=== PATIENT | male | born 1960 | race Caucasian/White ===

== ENCOUNTER 2017-02-05 08:05 | Inpatient (IN) | payer OTHER ==
--- NOTE | 2017-01-24 22:17 | HP ---
HISTORY AND PHYSICAL: DATE OF OFFICE VISIT: 01/24/17 DATE OF SURGERY/ADMISSION: 02/05/17 ATTENDING SURGEON: Mark Agrawal MD PROCEDURE: Right total knee arthroplasty. CHIEF COMPLAINT: Right knee pain. HISTORY OF PRESENT ILLNESS: The patient is a very pleasant 57-year-old gentleman with a longstanding history of right-sided knee pain for which he has failed conservative treatments such as physical therapy and NSAIDs. He has elected to undergo a right total knee arthroplasty by Dr. Agrawal on 02/05/17. PAST MEDICAL HISTORY: 1. Gout. 2. History of DVT x2, in 2013 and 2015. 3. Diabetes type 2. PAST SURGICAL HISTORY: 1. Herniated disk with laminectomy in 2003. 2. Inguinal hernia repair in 2014. 3. Knee scope, unsure of side, approximately 30 years ago. MEDICATIONS: 1. Xarelto 20 mg 1 tablet by mouth daily. 2. Metformin 500 mg by mouth twice a day. 3. Lovaza 1 g 1 tablet by mouth twice a day. 4. Vitamin D3 1000 International Units 1 tablet by mouth daily. 5. Allopurinol 100 mg 1 tablet by mouth daily. 6. Fenofibrate 145 mg 1 tablet by mouth daily. ALLERGIES: No known drug allergies. FAMILY MEDICAL HISTORY: Positive for heart disease. Mother was positive for diabetes, DVT, and PE. Brother x2 positive for DVT. SOCIAL HISTORY: The patient is denies tobacco use, rare alcohol use, approximately 1 to 2 times a month. Currently living with spouse in a 2-chetna home. REVIEW OF SYSTEMS: General: Negative for fevers, chills, or night sweats. No difficulty with anesthesia. HEENT: Negative for headache, lightheadedness, or syncopal episodes. Integument: Negative for abrasions, lesions, or open wounds. Cardiothoracic: Negative for chest pain, palpitations, or edema. Negative for hypertension. Pulmonary: Negative for shortness of breath, chronic cough, or COPD. GI: Negative for nausea, vomiting, constipation, diarrhea, or GERD. : Negative for nocturia, urinary frequency, or urgency. No history of UTIs or kidney problems. Musculoskeletal: Positive for right knee pain. Negative for back pain. Negative for other joint pains. Neuro: Negative for paresthesias or numbness. No history of seizure, stroke, or epilepsy. Endocrine: Positive for diabetes. Negative for thyroid disease. Hematologic: Negative for easy bruising, anemia, or excessive bleeding. Positive for DVT x2. Infectious Disease: Negative for MRSA, hepatitis C, or HIV. PHYSICAL EXAMINATION GENERAL: Well appearing, in no acute distress. Alert and oriented x3. Appropriate mood and affect. VITAL SIGNS: Height 6 feet, weight 138 pounds, temperature 97.6, respirations 16, blood pressure 160/94, and pulse 73. HEENT: Normocephalic, atraumatic. NECK: Supple. PULMONARY: Lungs clear to auscultation bilaterally. No crackles, rhonchi, or wheezes. CARDIO: Regular rate and rhythm. No murmurs, gallops, or rubs. No edema, bilateral lower extremities. ABDOMEN: Soft, nontender, and nondistended. NEUROLOGIC: Alert and oriented x3. Cranial nerves grossly intact. Sensation intact to light touch in bilateral lower extremities. MUSCULOSKELETAL: Range of motion of right knee is approximately 5 degrees to 115 degrees. Negative Homans sign bilaterally. Posterior tibialis pulses 2+ bilaterally. Sensation grossly intact to light touch bilateral lower extremities. Minimal joint effusion noted over right knee. Positive crepitus with flexion. DIAGNOSTIC STUDIES/LAB DATA: MRI dated 10/05/16. IMPRESSION: The patient is a 57-year-old gentleman, who has elected to undergo a right total knee replacement by Dr. Mark Agrawal on 02/05/17. He underwent a preoperative evaluation with his primary care doctor on 01/22/17, where he reports being clear to undergo his preoperative laboratory work today at the hospital. Postoperatively, the patient was referred to go home and is ready to live in a 1- chetna basic floor sometime. Medications of Percocet and Colace were prescribed to the patient. I will be in contact with Dr. Santo, his tonnage compilation clerk, with regards to his preoperative Xarelto and postoperative Xarelto dosing. Prescriptions for Percocet and Colace were called to the patient 's pharmacy. CINDY GRIFFIN [id number]/[facility] #: [id number] MTDD
--- NOTE | 2017-01-31 23:18 | HP ---
HISTORY AND PHYSICAL: DATE OF ADMISSION/SURGERY: 02/05/17 DATE OF OFFICE VISIT: 01/24/17 ATTENDING SURGEON: Dr. Agrawal. (DICTATED BY CINDY GRIFFIN) PROCEDURE: Right total knee replacement. CHIEF COMPLAINT: Right knee pain. HISTORY OF PRESENT ILLNESS: The patient is a 57-year-old male who has suffered from continuing pain from his right knee osteoarthritis. He failed conservative treatments such as steroid injections, physical therapy, NSAID treatment and has elected to undergo a right total knee replacement by Dr. Agrawal on 02/05/17. PAST MEDICAL HISTORY: 1. Gout. 2. History of DVTs x2 in 2013 and 2015, now on Xarelto manager intermediate. 3. Diabetes type 2, well controlled. PAST SURGICAL HISTORY: 1. Herniated disk with laminectomy, 2003. 2. Umbilical hernia repair, 2014. 3. Knee scope approximately 30 years ago. MEDICATIONS: 1. Xarelto 20 mg 1 tablet by mouth daily. 2. Metformin HCL 500 mg 1 tablet by mouth b.i.d. 3. Lovaza 1 g 1 capsule by mouth twice a day. 4. Vitamin D3 1000 units p.o. daily. 5. Allopurinol 100 mg p.o. daily. 6. Fenofibrate 145 mg p.o. daily. ALLERGIES: No known drug allergies. FAMILY MEDICAL HISTORY: Mother with diabetes, DVT and PE. Brother with DVT. Family history of heart disease. SOCIAL HISTORY: No tobacco use. Rare alcohol use. Currently living with spouse in 2-story home. REVIEW OF SYSTEMS: General: Negative for fevers, chills and no night sweats. No difficulty with anesthesia. HEENT: Negative for headache, lightheadedness or syncopal episodes. Integument: Negative for abrasions, lesions, open wounds or sores. No difficulty with healing. Cardiothoracic: Negative for chest pain, palpitations or edema. Negative for hypertension. Pulmonary: Negative for shortness of breath with exertion, chronic cough or COPD. No history of PEs. GI: Negative for nausea, vomiting, constipation, diarrhea or GERD. : Negative for nocturia, urinary frequency, urgency, history or UTIs or kidney problems. Musculoskeletal: Positive for right knee pain. Positive for generalized osteoarthritis. Neuro: Negative for paresthesias, numbness or history of seizures, stroke or epilepsy. Endocrine: Positive for diabetes. Negative for thyroid disease. Hematologic: Negative for easy bruising, anemia or excessive bleeding. Positive history of DVT x2 without eliciting event. Infectious Disease: No history of MRSA, hepatitis C, or HIV. PHYSICAL EXAMINATION GENERAL: Well appearing, in no acute distress. Alert and oriented. VITAL SIGNS: Height 6 feet, weight 238 pounds, temperature 97.6, respirations 16, blood pressure 150/94, pulse 73. HEENT: Normocephalic, atraumatic. Pupils reactive. PULMONARY: Lungs clear to auscultation bilaterally. No crackles, rhonchi or wheezes. CARDIAC: Regular rate and rhythm. No murmurs, gallops or rubs. Normal S1, S2. ABDOMEN: Soft, nontender, nondistended. Normoactive bowel sounds. No CVA tenderness bilaterally. MUSCULOSKELETAL: Posterior tibial pulses 2+ bilaterally. No edema noted bilaterally. Range of motion of right knee full extension with flexion to about 120 degrees. Tenderness of the medial joint line. Minimal joint effusion. NEUROLOGIC: Alert and oriented x3. Cranial nerves grossly intact. Sensation to light touch intact, bilateral lower extremities. ASSESSMENT: The patient was recently seen by his primary care doctor on and was cleared for the procedure. I spoke with Dr. Santo who prescribes the patient's Xarelto and he will hold the Xarelto 3 days prior to surgery without any bridging needing to be decided on the night after surgery if there are no complications. The patient had a recent imaging which was an MRI of his knee on 10/05/16 and he had no other questions or concerns. Prescription for Percocet and Colace was sent to the patient's pharmacy for postoperative pain management. He will call us if any questions do arise. CINYD GRIFFIN [id number]/[facility] #: [id number] ERLIN
[~2017-02-05 08:05] MED LIST: Buffered Lidocaine 0.9% SYRIN* 5 ML/SYR SYRINGE INTRADERM ONE; Sodium Citrate/Citric Acid* 15 ML UDC PO ONE; celeCOXIB CAP* 200 MG PO ONE
[2017-02-05] MEDS ORDERED: Sodium Citrate/Citric Acid* 15 ML UDC ONE (08:09)
[2017-02-05] MEDS ORDERED: ceFAZolin 2 GM PREMIX(*) 2 GM/50 ML BAG IVPB ONE (08:09)
[2017-02-05] MEDS ORDERED: celeCOXIB CAP* 100 MG ONE (08:09)
[2017-02-05] MEDS ORDERED: Buffered Lidocaine 0.9% SYRIN* 5 ML/SYR SYRINGE ONE (08:09)
[2017-02-05] MEDS ORDERED: Gabapentin CAP(*) 400 MG PO ONE (08:15)
[2017-02-05] MEDS ORDERED: Midazolam* 1 MG/ML 5 ML VIAL (5 MG) ONE ×2 (10:19→11:13)
[2017-02-05] MEDS ORDERED: fentaNYL* 50 MCG/ML 2 ML VIAL (100 MCG VIAL) ONE ×2 (10:19→13:14)
[2017-02-05] MEDS ORDERED: Lidocaine 2% EPI 1:200000 MPF* 20 ML VIAL ONE (10:22)
[2017-02-05] MEDS ORDERED: EPHEDrine (Pressors)* 50 MG/ML VIAL IV PUSH PRN (11:19)
[2017-02-05] MEDS ORDERED: Lactated Ringers 500 ml BAG* 500 ML IV PRN (11:19)
[2017-02-05] MEDS ORDERED: Ondansetron INJ* 2 MG/ML VIAL IV PRN ×2 (11:21→12:39)
[2017-02-05] MEDS ORDERED: Acetaminophen IV 1GM/100ML * 10 MG/ML VIAL IVPB ONE (11:21)
[2017-02-05] MEDS ORDERED: DiMENhydriNATE IV* 50 MG/ML VIAL IV PUSH PRN (11:21)
[2017-02-05] MEDS ORDERED: fentaNYL* 50 MCG/ML 2 ML VIAL (100 MCG VIAL) IV PRN (11:21)
[2017-02-05] MEDS ORDERED: Ropivacaine 0.2% EPIDURAL* 200 MG/100 ML BAG EPIDURAL ONE (12:03)
[2017-02-05] MEDS ORDERED: Acetaminophen IV 1GM/100ML * 100 ML ONE (12:15)
[2017-02-05] MEDS ORDERED: diPHENhydraMINE IV* 50 MG/ML 1 ml VIAL (BENADRYL) IV PRN (12:39)
[2017-02-05] MEDS ORDERED: Magnesium Hydroxide LIQ* 30 ML UDC PO PRN (12:39)
[2017-02-05] MEDS ORDERED: oxyCODONE TAB* 5 MG TAB PO PRN (12:39)
[2017-02-05] MEDS ORDERED: Bisacodyl SUPP* 10 MG SUPP PR PRN (12:39)
[2017-02-05] MEDS ORDERED: Acetaminophen TAB* 325 MG PO PRN (12:39)
[2017-02-05] MEDS ORDERED: oxyCODONE/Acetamin 5/325 MG* TAB PO PRN (12:39)
[2017-02-05] MEDS: Ropivacaine 0.2% EPIDURAL* 200 MG/100 ML BAG EPIDURAL SCH ×2 (12:59→22:09)
[2017-02-05] MEDS ORDERED: Dextrose 50% Syringe 50 ML* 25 GM/50 ML SYRINGE IV PUSH PRN (13:02)
--- NOTE | 2017-02-05 13:29 | RAD ---
HISTORY: Status post right knee arthroplasty COMPARISONS: None VIEWS: 2, Frontal and lateral views of the right knee FINDINGS: BONE DENSITY: Normal. BONES: The patient is status post right knee arthroplasty. There is no hardware failure or osteolysis. JOINTS: The patient is status post right knee arthroplasty ALIGNMENT: There is no dislocation. SOFT TISSUES: There is postsurgical change to the soft tissues OTHER FINDINGS: None. IMPRESSION: STATUS POST RIGHT KNEE ARTHROPLASTY
--- NOTE | 2017-02-05 15:35 | CONS ---
CONSULTATION REPORT: DATE OF CONSULT: 02/05/17 PRIMARY CARE PROVIDER: Pamela Carrera MD REQUESTING PHYSICIAN FOR CONSULTATION: Dr. Agrawal. ATTENDING PHYSICIAN WHILE IN THE HOSPITAL: Cady Martinez MD ( reportdictated by Ralf Latham NP). REASON FOR MEDICAL CONSULTATION: Evaluation and medical management of comorbid medical conditions. HISTORY OF PRESENT ILLNESS: I refer you to Dr. Agrawal's H and P for further details. In short, Mr. Warner is a 57-year-old male who has a history of hyperlipidemia, DVT, history of diabetes, and history of gout. He is on lifelong anticoagulation. He has been followed in the outpatient setting with Dr. Agrawal for right knee pain. He has been failing conservative therapy and it was felt that he would benefit from a total knee replacement, which he underwent today. Because of his comorbid medical problems, we were asked to evaluate in consult. He was evaluated in the PACU. The patient states he is feeling well. He denies having any chest pain. Denies having any shortness of breath. Denies any abdominal pain. He denies having any nausea or any vomiting. He states that he is not having any chest pain. He is having some tightness in his knee, but he denies having any numbness or tingling to the lower extremity. Because of his medical complexity, we were asked to evaluate in consult. PAST MEDICAL HISTORY: Significant for: 1. Gout. 2. DVT. 3. Diabetes. 4. Hyperlipidemia. PAST SURGICAL HISTORY: 1. He has had a laminectomy. 2. Hernia repair. 3. Knee arthroscopy, now he is status post right total knee replacement. MEDICATIONS: Home meds according to the preop list include: 1. Metformin 500 mg p.o. b.i.d. 2. Xarelto 20 mg daily. 3. Lovaza 2 capsules p.o. daily. 4. TriCor 145 mg daily. 5. Vitamin D 1000 units p.o. daily. 6. Allopurinol 100 mg p.o. q.a.m. ALLERGIES: To medications include no known drug allergies. FAMILY HISTORY: Mother had diabetes, history of DVT and PE. Father had a history of CT. SOCIAL HISTORY: He does not smoke. He rarely drinks alcohol. 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 Surrogate decision maker is his . REVIEW OF SYSTEMS: There is no documented fever. He denied having any significant weight change. There was no double vision. He denies having any ear discharge. There was no rhinorrhea. There is no sore throat, no thyroid enlargement. Denies having any chest pain. There is no orthopnea. There is no nocturnal dyspnea. There is no abdominal pain. There is no nausea. No vomiting. There is no dysuria. No frequency. There is no seizure. No loss of consciousness. No pruritus. No skin ulcerations. Review of 14 systems completed, all others negative. PHYSICAL EXAMINATION: Vital Signs: Blood pressure 135/74, pulse of 66, respirations of 14, O2 sat 97%, temperature 98.8. General: At this time, Mr. Warner is a 57-year-old male patient. He is sitting in the PACU bed. He does not appear to be in any acute distress. HEENT: Head is atraumatic, normocephalic. Eyes: EOMs are intact. Sclerae were anicteric and not pale. Neck: Supple. Throat: Oral mucosa appears to be moist. No oropharyngeal erythema. Heart: Sounds S1, S2. Regular rate and rhythm. No murmurs, rubs, or gallops. Lungs were clear to auscultation bilaterally. No wheezes, rales, or rhonchi. Abdomen is soft, flat, nontender. Bowel sounds hypoactive. Extremities: Pulses 2+ throughout. He can move his upper extremities with 5/5 strength. He does have limited range of motion of the right lower extremity as this is the operative leg, but distal CSM checks were intact. Neurologically, he is awake, alert, oriented x3. Tongue is midline. Heat Set Operator were equal. No gross focal deficits. Skin is intact except he has an incision to the right knee, which was covered with an Jose dressing, which is clean, dry, and intact. LABORATORY DATA/DIAGNOSTIC STUDIES: Preoperative WBC is 7.4, RBC 4.90, hemoglobin 14.7, hematocrit of 41, platelet count 200. His INR was 0.90. Sodium 137, potassium 3.9, chloride of 99, bicarb 27, BUN 15, creatinine 1.33. He had a urine preop, which was negative. He had a chest x-ray preop, which showed no active cardiopulmonary disease. There was an EKG obtained as well, which showed a normal sinus rhythm, rate of 79, no ST elevations or T wave inversions were noted. Old medical records were reviewed. ASSESSMENT AND PLAN: Mr. Warner is a 57-year-old male patient coming in to the orthopedic services today for an elective right total knee replacement. Hospitalist service was asked to evaluate in consult. My recommendations at this point are: 1. Status post right total knee replacement. I will defer the management to Dr. Agrawal and his team. 2. History of deep venous thrombosis and pulmonary embolism. I do see that the patient has received an epidural by anesthesia. I would touch base with the anesthesiology to make sure whether it was safe to restart from their standpoint and also safe to restart the Xarelto from the orthopedic standpoint, but I would start this medication as soon as again it is deemed appropriate and safe per Anesthesia and Orthopedics. Given the patient's history of deep venous thrombosis and pulmonary embolism, he is high risk for recurrence. 3. Hyperlipidemia. Continue TriCor. 4. Diabetes, he will be on lispro sliding scale. 5. DVT prophylaxis. Defer to the primary team. 6. Code status, full code. 7. Fluid, electrolytes, and nutrition. I would recommend a consistent carb diet. TIME SPENT: Time spent on the consult was 50 minutes, greater than half that time was spent [id number] with the patient obtaining my history and physical, the other half time was spent going over plan of care with the patient, implementing the plan of care. I discussed the plan of care with my attending, Dr. Martinez, she is in agreement. RALF LATHAM NP CC: Pamela Carrera MD; Dr. Agrawal * [id number]/[facility] #: [id number] [facility]
[2017-02-05] MEDS ORDERED: ceFAZolin VIAL(*) 1 GM in NS 0.9% 50 ML* 50 ML IVPB SCH (17:00)
[2017-02-05] MEDS: Insulin LISPRO* 1 UNITS UNIT SUBCUT SCH (17:11)
[2017-02-05] MEDS: Docusate CAP* 100 MG PO SCH (20:51)
[2017-02-05] MEDS ORDERED: metFORMIN* 1,000 MG TAB PO SCH (21:00)
[2017-02-06] MEDS: ceFAZolin VIAL(*) 1 GM in NS 0.9% 50 ML* 50 ML IVPB SCH ×2 (00:59→08:30)
--- NOTE | 2017-02-06 03:49 | OP ---
DATE OF OPERATION: 02/05/17 - ROOM #346 DATE OF : 64 ATTENDING SURGEON: Mark Agrawal MD PACS SPECIALIST: CINDY Hurtado ANESTHESIOLOGIST: Mark Mcmillan MD ANESTHESIA: Epidural and sedation. PRE-OP DIAGNOSIS: Osteoarthritis, right knee. POST-OP DIAGNOSIS: Osteoarthritis, right knee. OPERATIVE PROCEDURE: Right total knee arthroplasty. ESTIMATED BLOOD LOSS: Less than 50 cc. COMPLICATIONS: None. HARDWARE: Arya Persona #10 femur, G tibia, 10 mm polyethylene, 38 mm all polyethylene patellar button. INDICATIONS: Mr. Warner is a 57-year-old male who has been having continued troubles with right knee pain. He had been treated conservatively with anti- inflammatories, physical therapy, and injections, but still had very specific complaints about limitations with his ability to be on his feet and enjoy the things that he would like to do. His x-rays were not that bad where it was not completely [id number], but by MRI, he has significant loss of the weightbearing portion of the medial femur as well as significant loss of cartilage in the patellofemoral joint. Because of those changes and failure of conservative treatments, he has been indicated for a total knee arthroplasty. I discussed with him that a total knee arthroplasty should work well to decrease his pain and improve his function. Risks of surgery such as infection , scar formation, stiffness, DVT, pulmonary embolism, hardware failure, and continued pain were some of the risks discussed. He had been declared medically optimized and wished to proceed. DESCRIPTION OF PROCEDURE: The patient was brought to the OR and epidural anesthesia was established. Grajeda catheter was placed. Tourniquet was placed over the proximal right thigh and was used during the case. Total tourniquet time would be approximately 56 minutes. Right knee was prepped and then draped. Esmarch was used to exsanguinate the leg and the tourniquet was raised. Midline incision was made centered about the patella and was carried down to the skin and subcutaneous tissues. Extensor mechanism was nicely exposed and a sharp parapatellar arthrotomy was made. Clear yellowish joint fluid was encountered. Soft tissues were sharply elevated from the medial side of the tibia and the fat pad was sharply excised. Patella measured 27 mm in thickness and a nice 10-mm cut was taken. Patella was then easily subluxated laterally and the knee was flexed up. Nice exposure of the distal femur was obtained. Step drill was used to open the femoral canal and an intramedullary guide was placed. Guide was adjusted until it was perfectly parallel with the posterior condyles and then was pinned into place. Distal femoral cutting guide was then pinned into place. Femoral cut was taken and the saw just razed right in the intercondylar notch. Cutting block was reset for another 2 mm and distal femoral cut was recut and this time cut appeared much more typical. Femur was sized and he sat right on for a 10. Holes were drilled and cutting block was placed. Cutting block, however, seemed to be a bit low as the superior drill hole did not come out on the top side of the femoral cortex. This was moved up twice until the drill came out on to top side of the cortex. Anterior cut was taken and it was felt like he could probably go back down to 1 mm, but I thought he would be in a fit position. Posterior and chamfer cuts were all taken. Attention was turned to the tibia. Step drill was used to open the tibial canal and the intramedullary guide was placed. Outrigger was assembled and adjusted until it appeared it would take 2 mm from the worn medial side. Cutting guide was then pinned into place and the proximal tibial cut was taken. Nice cut was obtained. Spacer block was placed and with a 10 block, he came out nicely into full extension, locking, and easily flex as well. Cuts appeared to be in very good position. Drop tanner was placed and alignment was also very good. Proximal tibia sized to a G and the proximal tibia was drilled and then punched. A 10 trial femur and then notch cut was finished and the stud holes were drilled. He was trailed with a 10 mm polyethylene and came out nicely until full extension and easily flexed back past 135 degrees. There is no levering of the polyethylene as he flexed backwards. He was stable to varus and valgus stress throughout. Patella tracking was also quite good. Patella was sized and he sat nicely for a 38. Holes were drilled and trial was snapped into place. Patella tracking was still excellent. Trial instrumentation was removed and the knee was copiously pulse lavaged. Cement was being prepared. Tibia followed by femur and patella were all cemented into place. Cement was allowed to harden and excess cement was then removed. Knee was then searched again for excess cement and using the osteotome, small pieces were chipped away. Knee was again copiously pulse lavaged. Knee was trailed again with the 10 polyethylene and had same wonderful motion and stability. The 10 poly was then snapped into place. Knee was again pulse lavaged and the parapatellar arthrotomy was repaired using interrupted #1 Vicryl sutures. Tourniquet was let down and no significant bleeding was encountered. Subcutaneous tissues were reapproximated using 2-0 Vicryl. Skin was closed using carla. Sterile dressing and a Cryo/Cuff were applied in the OR. The patient was awakened stable and transferred to the recovery room. [id number]/[facility] #: [id number] ERLIN
[2017-02-06] MEDS: oxyCODONE/Acetamin 5/325 MG* TAB PO PRN ×6 (04:00→20:43)
[2017-02-06] MEDS: Morphine INJ* 2 MG/ML 1 ML SYRINGE IV PRN ×2 (06:09→06:38)
[2017-02-06 06:21] LABS: Hematocrit 32 % (42-52); Hemoglobin 11.2 g/dl (14.0-18.0)
[2017-02-06 06:41] LABS: Calcium 8.5 mg/dL (8.6-10.3); EGFR African American 80.1 (>60); EGFR Non-African American 62.3 (>60); Potassium 3.8 mmol/L (3.5-5.0)
[2017-02-06] MEDS ORDERED: Ketorolac INJ* 30 MG/ML 1 ML VIAL ONE (07:39)
[2017-02-06] MEDS ORDERED: HYDROmorphone* 1 MG/ML 1 ML SYR ONE (07:39)
[2017-02-06] MEDS: Vitamin THERAPEUTIC TAB PO SCH (08:27)
[2017-02-06] MEDS: Docusate CAP* 100 MG PO SCH ×2 (08:27→20:43)
[2017-02-06] MEDS: CMC:Fenofibrate(NF) 145 MG TAB PO SCH (08:27)
[2017-02-06] MEDS: Insulin LISPRO* 1 UNITS UNIT SUBCUT SCH ×3 (08:28→17:32)
--- NOTE | 2017-02-06 09:14 | PN ---
Progress Note - Progress Note SOAP: Subjective: []Patient seen at bedside. States he had a "bad night". Did not sleep well and now pain is increased as the block has now worn off. Ready to get out of bed with therapy. Objective: [] Vital Signs Temp 98.3 F 02/06/17 07:30 Pulse 77 02/06/17 07:30 Resp 16 02/06/17 08:44 BP 158/90 02/06/17 07:30 Pulse Ox 97 02/06/17 08:32 Intake & Output 02/05/17 02/06/17 02/06/17 18:59 06:59 18:59 Intake Total 3395 2434 Output Total 250 1250 Balance 3145 1184 Weight 238 lb 6.4 oz Intake: IV Fluids 2750 1374 LR 2700 1374 NS 50ML, Cefazolin 2G 50 Oral 645 1060 Output: Grajeda 250 1250 Estimated Blood Loss 0 Other: # Bowel Movements 0 Laboratory Results - last 24 hr 02/05/17 02/06/17 02/06/17 16:30 05:57 05:57 Hgb 11.2 L Hct 32 L INR (Anticoag Therapy) 0.93 Sodium Potassium Chloride Carbon Dioxide Anion Gap BUN Creatinine Est GFR ( Amer) Est GFR (Non-Af Amer) BUN/Creatinine Ratio Glucose POC Glucose (mg/dL) 91 Calcium 02/06/17 02/06/17 05:57 07:53 Hgb Hct INR (Anticoag Therapy) Sodium 135 Potassium 3.8 Chloride 105 Carbon Dioxide 24 Anion Gap 6 BUN 17 Creatinine 1.21 H Est GFR ( Amer) 80.1 Est GFR (Non-Af Amer) 62.3 BUN/Creatinine Ratio 14.0 Glucose 144 H POC Glucose (mg/dL) 157 H Calcium 8.5 L Right knee YENIFER is dry and intact calf non tender and soft + DF/PF right ankle sensation intact distally Assessment: []s/p Right total knee arthroplasty POD #1 Plan: []PT/OT WBAT RLE Re- start Xarelto 20 mg this afternoon Home in 1- 2 days
--- NOTE | 2017-02-06 11:23 | PN ---
Subjective Date of Service: 02/06/17 Interval History: Pt examined today at the bedside. States that this am his pain in his right knee was unbearable. However now states that he is feeling much better since receiving iv and PO pain meds. Denies chest pain and sob. ROS-denies fever, denies chills, denies chest pain, denies sob, denies nausea, denies vomiting, denies lightheadedness, denies loc, denies abdominal pain, review of 11 systems completed all others negative, Objective Active Medications: Acetaminophen (Tylenol Tab*) 650 mg PO Q4H PRN PRN Reason: PAIN OR TEMPERATURE Bisacodyl (Dulcolax Supp*) 10 mg [place] DAILY PRN PRN Reason: constipation Dextrose (D50w Syringe 50 Ml*) 12.5 gm IV PUSH .FOR FS < 60 - SS PRN PRN Reason: FS < 60 Diphenhydramine HCl (Benadryl Iv*) 25 mg IV Q6H PRN PRN Reason: itching or insomnia Last Admin: 02/06/17 02:50 Dose: 25 mg Docusate Sodium (Colace Cap*) 100 mg PO BID [facility] Last Admin: 02/06/17 08:27 Dose: 100 mg Fenofibrate (Tricor(Nf)) 145 mg PO QAM [facility] PRN Reason: Protocol Last Admin: 02/06/17 08:27 Dose: 145 mg Hydromorphone HCl (Dilaudid Iv*) 1 mg IV Q1H PRN PRN Reason: PAIN - SEVERE Ropivacaine (Ropivacaine 0.2% Epidural*) 200 mg in 100 mls @ 0 mls/hr EPIDURAL .PER RATE [facility]; Per Protocol PRN Reason: Protocol Last Admin: 02/05/17 22:09 Dose: 10 mls/hr Lactated Ringer's (Lactated Ringers 1000 Ml Bag*) 1,000 mls @ 100 mls/hr IV PER RATE [facility] Last Admin: 02/06/17 00:58 Dose: 100 mls/hr Insulin Human Lispro (Humalog*) 0 units SUBCUT AC [facility] PRN Reason: Protocol Last Admin: 02/06/17 08:28 Dose: 3 units Ketorolac Tromethamine (Toradol Inj*) 30 mg IV Q6H PRN PRN Reason: PAIN Lactulose (Lactulose*) 30 ml PO Q6H PRN PRN Reason: constipation Magnesium Hydroxide (Milk Of Magnesia Liq*) 30 ml PO Q6H PRN PRN Reason: constipation Morphine Sulfate (Morphine Inj (Syringe)*) 2 mg IV Q30M PRN PRN Reason: PAIN - UNCONTROLLED Last Admin: 02/06/17 06:38 Dose: 2 mg Multivitamins (Theragran Tab*) 1 tab PO DAILY [facility] Last Admin: 02/06/17 08:27 Dose: 1 tab Ondansetron HCl (Zofran Inj*) 4 mg IV Q6H PRN PRN Reason: nausea Oxycodone HCl (Roxycodone Tab*) 10 mg PO Q4H PRN PRN Reason: PAIN - SEVERE Last Admin: 02/06/17 06:14 Dose: 10 mg Oxycodone/Acetaminophen (Percocet 5/325 Tab*) 1 tab PO Q3H PRN PRN Reason: PAIN - MODERATE Oxycodone/Acetaminophen (Percocet 5/325 Tab*) 2 tab PO Q3H PRN PRN Reason: PAIN - MODERATE TO SEVERE Last Admin: 02/06/17 10:31 Dose: 2 tab Rivaroxaban (Xarelto (*)) 20 mg PO DAILY [facility] Vital Signs 02/05/17 02/05/17 02/05/17 12:33 12:35 12:40 Temperature 98.8 F Pulse Rate 67 66 63 Respiratory 16 16 16 Rate Blood Pressure 114/66 104/81 112/73 (mmHg) O2 Sat by Pulse 100 97 97 Oximetry 02/05/17 02/05/17 02/05/17 12:45 13:00 13:14 Temperature Pulse Rate 64 66 Respiratory 12 14 12 Rate Blood Pressure 113/76 135/75 (mmHg) O2 Sat by Pulse 100 97 Oximetry 02/05/17 02/05/17 02/05/17 13:15 13:30 13:45 Temperature 98.8 F Pulse Rate 62 60 63 Respiratory 12 14 12 Rate Blood Pressure 122/70 128/74 120/74 (mmHg) O2 Sat by Pulse 98 98 98 Oximetry 02/05/17 02/05/17 02/05/17 14:00 14:20 14:23 Temperature 97.6 F 97.6 F Pulse Rate 66 64 64 Respiratory 12 16 16 Rate Blood Pressure 116/72 115/80 115/80 (mmHg) O2 Sat by Pulse 98 100 100 Oximetry 02/05/17 02/05/17 02/05/17 15:21 15:48 16:00 Temperature 97.7 F Pulse Rate 72 Respiratory 16 16 Rate Blood Pressure 121/78 (mmHg) O2 Sat by Pulse 100 98 98 Oximetry 02/05/17 02/05/17 02/05/17 16:21 18:28 19:45 Temperature 97.9 F 98.0 F Pulse Rate 65 75 Respiratory 16 17 17 Rate Blood Pressure 116/67 120/69 (mmHg) O2 Sat by Pulse 100 100 Oximetry 02/05/17 02/05/17 02/05/17 19:46 20:00 20:26 Temperature 98.3 F Pulse Rate 79 Respiratory 17 17 16 Rate Blood Pressure 113/63 (mmHg) O2 Sat by Pulse 100 Oximetry 02/05/17 02/06/17 02/06/17 23:39 02:32 02:50 Temperature 98.4 F Pulse Rate 79 Respiratory 16 17 Rate Blood Pressure 122/65 (mmHg) O2 Sat by Pulse 96 98 Oximetry 02/06/17 02/06/17 02/06/17 03:06 03:50 04:00 Temperature 98.0 F Pulse Rate 81 Respiratory 16 16 16 Rate Blood Pressure 146/77 (mmHg) O2 Sat by Pulse 100 Oximetry 02/06/17 02/06/17 02/06/17 06:00 06:09 06:14 Temperature Pulse Rate Respiratory 16 17 17 Rate Blood Pressure (mmHg) O2 Sat by Pulse Oximetry 02/06/17 02/06/17 02/06/17 06:38 07:04 07:09 Temperature Pulse Rate Respiratory 17 18 18 Rate Blood Pressure (mmHg) O2 Sat by Pulse Oximetry 02/06/17 02/06/17 02/06/17 07:30 07:38 07:44 Temperature 98.3 F Pulse Rate 77 Respiratory 20 16 18 Rate Blood Pressure 158/90 (mmHg) O2 Sat by Pulse 97 Oximetry 02/06/17 02/06/17 02/06/17 08:14 08:32 08:44 Temperature Pulse Rate Respiratory 16 16 16 Rate Blood Pressure (mmHg) O2 Sat by Pulse 97 Oximetry 02/06/17 02/06/17 09:04 10:31 Temperature Pulse Rate Respiratory 16 16 Rate Blood Pressure (mmHg) O2 Sat by Pulse Oximetry Oxygen Devices in Use Now: None Appearance: 57 y/o male patient NAD, Ears/Nose/Mouth/Throat: NL Teeth, Lips, Gums Neck: NL Appearance and Movements; NL JVP Respiratory: Symmetrical Chest Expansion and Respiratory Effort, Clear to Auscultation Cardiovascular: NL Sounds; No Murmurs; No JVD Abdominal: NL Sounds; No Tenderness; No Distention Extremities: - - distal CSM checks intact to RLE Skin: No Rash or Ulcers, - - incision to RLE CDI Neurological: Alert and Oriented x 3 Lines/Tubes/Other Access: Clean, Dry and Intact Peripheral IV Result Diagrams: 02/06/17 05:57 02/06/17 05:57 Assess/Plan/Problems-Billing Assessment: 57 y/o male patient s/p RTKA with hx of DVT and DM - Patient Problems (1) Status post total right knee replacement Current Visit: Yes Status: Acute Priority: High Comment: Per ortho POD 1 (2) Hx of deep venous thrombosis Current Visit: Yes Status: Acute Priority: High Comment: continue xarelto when approriate per ortho and anesthesia, (3) Gout Current Visit: Yes Status: Acute Priority: High Comment: continue home meds at d/c (4) Diabetes Current Visit: Yes Status: Acute Priority: High Comment: Sliding scale at d/c continue home meds, glucose stbale (5) HLD (hyperlipidemia) Current Visit: Yes Status: Acute Priority: High Comment: Tricor continue (6) DVT prophylaxis Current Visit: Yes Status: Acute Priority: High Comment: Xarelto (7) Full code status Current Visit: Yes Status: Acute Code(s): Z78.9 - OTHER SPECIFIED HEALTH STATUS SNOMED Code(s): 090940596 (8) FEN Current Visit: Yes Status: Acute Priority: High Comment: Consistent carb diet Status and Disposition: Hospitalist medicine will sign off for now, please call with any concerns at [phone] thank you for the consult, please continue home meds at d/c,
[2017-02-06] MEDS: Rivaroxaban TAB(*) 20 MG TAB PO SCH (12:04)
[2017-02-06] MEDS: HYDROmorphone* 1 MG/ML 1 ML SYR IV PRN ×4 (14:22→20:44)
[2017-02-06] MEDS: Ketorolac INJ* 30 MG/ML 1 ML VIAL IV PRN (17:37)
[2017-02-07] MEDS: Ketorolac INJ* 30 MG/ML 1 ML VIAL IV PRN ×2 (00:30→06:25)
[2017-02-07] MEDS: oxyCODONE/Acetamin 5/325 MG* TAB PO PRN ×5 (00:30→14:51)
[2017-02-07] MEDS: HYDROmorphone* 1 MG/ML 1 ML SYR IV PRN ×2 (00:35→04:07)
[2017-02-07 06:34] LABS: Hematocrit 31 % (42-52); Hemoglobin 10.5 g/dl (14.0-18.0)
[2017-02-07 06:49] LABS: BUN/Creatinine Ratio 9.8 (8-20); Calcium 8.7 mg/dL (8.6-10.3); EGFR African American 71.8 (>60); EGFR Non-African American 55.8 (>60); Potassium 3.5 mmol/L (3.5-5.0)
[2017-02-07] MEDS: Insulin LISPRO* 1 UNITS UNIT SUBCUT SCH ×3 (08:01→14:59)
[2017-02-07] MEDS: CMC:Fenofibrate(NF) 145 MG TAB PO SCH (09:25)
[2017-02-07] MEDS: Docusate CAP* 100 MG PO SCH (09:26)
[2017-02-07] MEDS: Rivaroxaban TAB(*) 20 MG TAB PO SCH (09:26)
[2017-02-07] MEDS: Vitamin THERAPEUTIC TAB PO SCH (09:26)
[2017-02-07 11:43] VITALS: BP 116/65
--- NOTE | 2017-02-07 15:04 | DS ---
DATE OF ADMISSION: 02/05/17. DATE OF DISCHARGE: 02/07/17. ATTENDING PHYSICIAN: Mark Agrawal MD (DICTATED BY CINDY ABAD) ADMISSION DIAGNOSES: Osteoarthritis right knee. DISCHARGE DIAGNOSES: Osteoarthritis right knee. SURGERY PERFORMED: Right total knee arthroplasty. HOSPITAL COURSE: Patient is 57-year-old male who was having continued right knee pain which had not been amenable to conservative management with antiinflammatories, physical therapy, and cortisone steroid injections. The patient had a region of significant collagenous loss on the weightbearing portion of the medial femur and patellofemoral joint based on MRI findings. It was felt that because he failed conservative management, he would benefit from a total knee arthroplasty. The patient elected to proceed and was taken to the operating room under the care of Dr. Mark Agrawal for the aforementioned procedure on 02/05/17. He tolerated the procedure well and left the operating room in stable condition. Postoperatively he progressed satisfactorily with the physical therapy and occupational therapy goals. He was restarted on Xarelto 20 mg p.o. daily on postoperative day #1, after his epidural was removed per protocol of anesthesia. He did well with physical therapy and the found to be medically and orthopedically stable for discharge to home on the day of . CONDITION ON DISCHARGE: His vital signs are stable. He is afebrile. His right knee incision is healing without evidence of infection. His calf is nontender and soft. His neurovascular status is intact. PLAN: Discharge to home. Continue to bear weight as tolerated and continue with physical therapy exercises as learned. He will continue with the Xarelto 20 mg p.o. daily as prescribed preoperatively. He will followup in roughly in 3 to 4 weeks in the office with Dr. Argawal and will call the office with any problems including increased right knee pain, drainage, redness, calf pain or swelling, shortness of breath, or chest pain. He will also continue with Percocet and the Colace medications as prescribed perioperatively. CINDY ABAD [id number]/[facility] #: [id number] [facility]
== END 2017-02-07 16:05 | disposition home health service (06) | DRG 470 ==
LOC: AA 08:05 → SSU 12:39
PROVIDERS: ADMIT Orthopaedic Surgery; ATTEND Orthopaedic Surgery
PROC: 0SRC0J9 Replacement of Right Knee Joint with Synthetic Substitute, Cemented, Open Approach (ICD-10-PCS; principal; 2017-02-05 09:30)
DX: M17.11 Unilateral primary osteoarthritis, right knee (principal); E11.9 Type 2 diabetes mellitus without complications; M10.9 Gout, unspecified; E78.5 Hyperlipidemia, unspecified; E66.3 Overweight; Z68.32 Body mass index [BMI] 32.0-32.9, adult; Z82.49 Family history of ischemic heart disease and other diseases of the circulatory system; Z83.3 Family history of diabetes mellitus; Z86.718 Personal history of other venous thrombosis and embolism; Z80.3 Family history of malignant neoplasm of breast; Z83.2 Family history of diseases of the blood and blood-forming organs and certain disorders involving the immune mechanism; Z79.01 Long term (current) use of anticoagulants; Z79.84 Long term (current) use of oral hypoglycemic drugs
CPT/HCPCS: 36415; 62327; 80048; 85014; 85018; 85610; 94760; A9270-GY; C1776; J0690; J1170; J1200; J1885; J2250; J2270; J2795; J3010